=== PATIENT | male | born 1980 ===

== ENCOUNTER 2018-10-01 12:37 | Emergency (ER) | payer OTHER ==
[2018-10-01] MEDS ORDERED: NS 1,000 ML IV ONE (13:09)
[2018-10-01] MEDS ORDERED: ONDANSETRON 4 MG/2 ML VIAL IVP ONE (13:09)
[2018-10-01] MEDS ORDERED: FAMOTIDINE 20 MG/NACL 50 ML IV ONE (13:09)
[2018-10-01 13:26] LABS: PLATELET COUNT 257 10^3/uL (150-400)
[2018-10-01] MEDS ORDERED: HYDROmorphONE/DILAUDID 2 MG/ML INJ IVP ONE (13:32)
--- NOTE | 2018-10-01 13:36 | EDPHY ---
H & P Time Seen by Provider: 10/01/18 12:59 HPI/ROS: HPI Abdominal pain. 38-year-old male by private vehicle with his girlfriend. This patient reports sudden-onset periumbilical and right lower quadrant abdominal pain described as stabbing and aching at 4:00 a.m. this morning. He has had associated nausea with several episodes of nonbilious, nonbloody vomiting. He also describes having watery diarrhea. No bloody or melenic stool. His last meal was last night at around 7:00 p.m.. No prior abdominal surgical history. ROS: Constitutional: No fever, no chills. No weakness. Eyes: No discharge. No changes in vision. ENT: No sore throat. No nasal congestion or rhinorrhea. Respiratory: No cough. No shortness of breath. Cardiac: No chest pain, no palpitations. Gastrointestinal: As above. Genitourinary: No hematuria. No dysuria or increased frequency with urination. Musculoskeletal: No back pain. No neck pain. No myalgias or arthralgias. Skin: No rashes. Neurological: No headache. No focal weakness or altered sensation. Past medical history: No past medical history. No prescription medications. Social history: Here with his girlfriend. Nonsmoker. No alcohol. Physical Exam: General Appearance: Alert, no distress. This patient is responding to questions appropriately and in full sentences. This patient appears well- hydrated and well-nourished. Eyes: Pupils equal and round no pallor or injection. No lid edema, erythema or injection. Respiratory: There are no retractions, lungs are clear to auscultation with good air movement bilaterally. Cardiovascular: Regular rate and rhythm. No murmur. Gastrointestinal: Abdomen is soft with moderate periumbilical and right lower quadrant tenderness on palpation, no masses, bowel sounds normal. No Plaza sign. Neurological: Motor sensory function is grossly intact. Cranial nerves are normal. Gait is normal. Skin: Warm and dry, no rashes. Musculoskeletal: Neck is supple and nontender. Extremities are symmetrical. All joints range without pain or impingement. Psychiatric: No agitation. No depression. Database: EKG: Imaging: CT abdomen and pelvis with IV contrast: Nonspecific ileitis. No abscess, no obstruction, no free air. Free fluid noted in the pelvis. Appendix is well visualized and is normal. Results discussed with staff radiologist Dr. Jamaal Bowen. Procedures: Emergency department course: Triage vital signs reviewed and are normal. IV was placed. He was started on IV normal saline with 1 L to be given over the next hour. He will initially be given 20 mg of IV Pepcid, 4 mg of IV Zofran and 0.5 mg of IV hydromorphone for pain. His presentation is consistent with acute appendicitis. 3:15 p.m., spoke with chief technician Dr. Terrell Bartlett. I discussed the results of this patient's CT scan with him as well as his history. Dr. Bartlett does not feel this steroids should be started at this time. He feels this is most likely a viral ileitis. The patient is not febrile. His vital signs have been normal throughout his emergency department course. 3:20 p.m., the patient was re-evaluated. He is much more comfortable at this time. I read discussed the results of his CT scan with him and his girlfriend. His blood work was reviewed as well. Repeat abdominal exam is soft with mild and vague tenderness on palpation of the mid and lower abdomen. His pain is otherwise well controlled. He has been taking oral fluids. At this time he does not want to be admitted to the hospital for observation. Plan will be to discharge him to home with a prescription for Zofran for nausea and a limited prescription of Vicodin for pain. Strict return to emergency department precautions have been reviewed with the patient and his girlfriend. Follow-up with his primary care physician was discussed. All of his questions were answered. He was discharged from the emergency department in good condition with his girlfriend who is driving. Differential Diagnosis: The differential diagnosis on this patient includes but is not limited to ileitis, appendicitis, ureterolithiasis, cholecystitis, biliary colic, food- borne illness, gastroenteritis. This represents a partial list of diagnoses considered. These considerations are based on history, physical exam, past history, reassessment and diagnostic testing. Smoking Status: Current every day smoker Constitutional: Initial Vital Signs Temperature (C) 37.4 C 10/01/18 12:49 Heart Rate 84 10/01/18 12:49 Respiratory Rate 18 10/01/18 12:49 Blood Pressure 116/78 10/01/18 12:49 O2 Sat (%) 98 10/01/18 12:49 O2 Delivery Mode Room Air Allergies/Adverse Reactions: No Known Allergies Allergy (Unverified 10/01/18 12:52) Home Medications: Medication Instructions Recorded Hydrocodone/APAP 5/325 [[place] 1 - 2 tab PO Q4-6PRN PRN #7 tab 10/01/18 5/325 (*)] Ondansetron Odt [Zofran Odt 4 mg 4 mg PO Q4PRN PRN #10 tab 10/01/18 (*)] Medical Decision Making - Data Points Laboratory Results: Laboratory Results 10/01/18 13:18 10/01/18 13:18 Medications Given: Discontinued Medications Hydromorphone HCl (Dilaudid) 0.5 mg IVP EDNOW ONE Stop: 10/01/18 13:33 Last Admin: 10/01/18 13:44 Dose: 0.5 mg Sodium Chloride (Ns) 1,000 mls @ 0 mls/hr IV EDNOW ONE; Wide Open PRN Reason: Protocol Stop: 10/01/18 13:10 Last Admin: 10/01/18 13:18 Dose: 1,000 mls Famotidine/Sodium Chloride (Pepcid 20 Mg (Premix)) 50 mls @ 200 mls/hr IV EDNOW ONE Stop: 10/01/18 13:23 Last Admin: 10/01/18 13:44 Dose: 50 mls Ondansetron HCl (Zofran) 4 mg IVP EDNOW ONE Stop: 10/01/18 13:10 Last Admin: 10/01/18 13:44 Dose: 4 mg Departure - Departure Disposition: Home, Routine, Self-Care Clinical Impression: Abdominal pain, Ileitis, Gastroenteritis Condition: Good Instructions: Gastroenteritis (ED) Additional Instructions: Read and follow provided instructions. Follow-up with your primary care physician in 1-2 days for re-evaluation. Take medication as prescribed for nausea. Stay well hydrated and drink plenty of fluids. Use narcotic pain medication only as prescribed only an only as needed. You can take ibuprofen as well. Ibuprofen dosin mg every 6 hours with meals for the next 3 days only. Take only as needed for pain. Return to the emergency department as discussed for worsening abdominal pain, fever, vomiting and inability to keep fluids down despite medications, bloody stool or other serious concerns. Referrals: NONE *PRIMARY CARE P,. [Primary Care Provider] - As per Instructions Stand Alone Forms: Work Excuse Prescriptions: Hydrocodone/APAP 5/325 [[place] 5/325 (*)] 1 - 2 tab PO Q4-6PRN PRN #7 tab PRN Reason: Pain, Moderate Ondansetron Odt [Zofran Odt 4 mg (*)] 4 mg PO Q4PRN PRN #10 tab PRN Reason: For Nausea & Vomiting
[2018-10-01] MEDS ORDERED: IOPAMIDOL (ISOVUE-300) 100 ML BTL ONE ×2 (14:15→14:22)
[2018-10-01 15:50] VITALS: BP 112/64
== END 2018-10-01 15:50 | disposition home or self-care (01) ==
DX: R10.9 Unspecified abdominal pain (principal); K52.9 Noninfective gastroenteritis and colitis, unspecified; E86.9 Volume depletion, unspecified
CPT/HCPCS: 96374; J1170; J2405; Q9967